=== PATIENT | female | born 1950 | race Caucasian/White ===

== ENCOUNTER → 2021-07-26 | Outpatient (CLI) | payer OTHER ==
[~2021-07-26] MED LIST: Antivert25 MG PO; DIPH50 PO; Percocet 7.5-31 EACH PO; SUMA25 PO
[2021-07-26 17:03] LABS: Alanine Aminotransfer (ALT/SGP 31 U/L (12-78); Alk Phos 92 U/L (50-136); Anion Gap 7 mmol/L (6-16); Aspartate Aminotrans (AST/SGOT 26 U/L (12-37); Bilirubin, Total 0.5 mg/dL (0.1-1.0); Blood Urea Nitrogen 13 mg/dL (8-24); Bun/Creatinine Ratio 20.9 (12.0-20.0); CO2, Blood 28 mmol/L (21-32); Calcium, Blood 10.4 mg/dL (8.5-10.1); Chloride, Blood 104 mmol/L (98-108); Creatinine, Blood 0.62 mg/dL (0.40-1.00); Globulin, Blood 3.9 g/dL (2.2-4.0); Glomerular Filtration Rate >60 (60-); Glucose, Blood 93 mg/dL (70-99); Potassium, Blood 3.2 mmol/L (3.5-5.5); Sodium, Blood 139 mmol/L (136-145); Total Protein, Blood 7.9 g/dL (6.4-8.2)
[2021-07-26 19:09] LABS: CHOL/HDL RATIO 3.9; Cholesterol 262 mg/dL (50-200); HDL Cholesterol 68 mg/dL (>39); LDL/HDL RATIO 2.5; Low Density Lipoprotein Chol 170 mg/dL (0-110); Triglycerides 118 mg/dL (30-160); Very Low Density Lipoprot Chol 23 mg/dL (6-32)
== END | disposition home or self-care (01) ==
LOC: LAB SHORT 10:37
PROVIDERS: Nurse Practitioner Family
DX: E78.5 Hyperlipidemia, unspecified (principal); K59.00 Constipation, unspecified; R10.13 Epigastric pain; R11.10 Vomiting, unspecified
CPT/HCPCS: 80053; 80061; 87086

== ENCOUNTER 2023-12-26 15:32 | Emergency (ER) | payer OTHER ==
[~2023-12-26] VITALS: Ht 167.6 cm; Wt 90.7 kg
[2023-12-26 17:37] VITALS: BP 165/123
== END 2023-12-26 17:53 | disposition home or self-care (01) ==
LOC: ER 15:32
DX: S05.12XA Contusion of eyeball and orbital tissues, left eye, initial encounter (principal); S09.8XXA Other specified injuries of head, initial encounter; L03.211 Cellulitis of face; W10.8XXA Fall (on) (from) other stairs and steps, initial encounter; Y92.511 Restaurant or cafe as the place of occurrence of the external cause

== ENCOUNTER 2025-02-13 06:29 | Day surgery (SDC) | payer OTHER ==
[~2025-02-13] VITALS: Ht 165.1 cm; Wt 89.8 kg
[~2025-02-13 06:29] MED LIST changes: +AMOCLA875 PO; +Balanced Salt Epinephrine Irrigation Solution 500 mL IR SCH; +Diazepam 5 MG Tab PO PRN; +Diazepam 5 MG Tab PO SCH; +HYDR1TAB94 PO; +Lidocaine HCl/Pf 1% 5 ML VIAL XX SCH; +Moxifloxacin HCL 0.5 MG/0.1 ML 0.4MLSYR RIGHTEYE SCH; +Ondansetron 4 MG SoluTab MM PRN; +PHENYLEPHRINE\\TROPICAMIDE\\TETRACAINE OPHTHALMIC DILATING SOLN RIGHTEYE PRN; +Povidone-Iodine 450 DROP/30 ML Solution ONE; +Povidone-Iodine 450 DROP/30 ML Solution RIGHTEYE SCH; +Tetracaine HCl/Pf 0.5% Opth Soln 4 ml ONE
[2025-02-13] MEDS ORDERED: Diazepam 10 MG Tab ONE (06:35)
[2025-02-13] MEDS ORDERED: Lidocaine HCl/Pf 1% 5 ML VIAL ONE (06:49)
[2025-02-13] MEDS ORDERED: Triamcinolone Inj Susp 40 MG / ML 1ML Vial ONE (06:49)
--- NOTE | 2025-02-13 06:50 | NUR ---
02/13/25 0650 Dora Frazier PT STATES ANXIETY LEVEL IN PREOP IS 7/10 BEFORE VALIUM PO 10MG. PT IS ON CONTINUOUS PULSE OX MONITORING. CALL LIGHT IN HAND
--- NOTE | 2025-02-13 08:12 | NUR ---
02/13/25 0812 Angelika Villagomez BP-152/83 P-62 SPO2-100% 10L BLOW BY O2
[2025-02-13 08:20] VITALS: BP 153/80
--- NOTE | 2025-02-13 08:40 | NUR ---
02/13/25 1853 iMmi Wong SPOUSE CALLED TO PULL CAR AROUND
== END 2025-02-13 08:40 | disposition home or self-care (01) ==
LOC: ORSCSDS 06:29
PROVIDERS: Ophthalmology
PROC: 08RJ3JZ Replacement of Right Lens with Synthetic Substitute, Percutaneous Approach (ICD-10-PCS; principal; 2025-02-13 08:00)
DX: H25.813 Combined forms of age-related cataract, bilateral (principal); I10 Essential (primary) hypertension
CPT/HCPCS: A9270; J2003; J3301; V2632

== ENCOUNTER 2025-02-20 06:29 | Day surgery (SDC) | payer OTHER ==
[~2025-02-20] VITALS: Ht 165.1 cm; Wt 89.3 kg
[~2025-02-20 06:29] MED LIST changes: -Diazepam 5 MG Tab PO PRN; -Diazepam 5 MG Tab PO SCH; -Lidocaine HCl/Pf 1% 5 ML VIAL XX SCH; +Moxifloxacin HCL 0.5 MG/0.1 ML 0.4MLSYR LEFTEYE SCH; -Moxifloxacin HCL 0.5 MG/0.1 ML 0.4MLSYR RIGHTEYE SCH; +PHENYLEPHRINE\\TROPICAMIDE\\TETRACAINE OPHTHALMIC DILATING SOLN LEFTEYE PRN; -PHENYLEPHRINE\\TROPICAMIDE\\TETRACAINE OPHTHALMIC DILATING SOLN RIGHTEYE PRN; +Povidone-Iodine 450 DROP/30 ML Solution LEFTEYE SCH; -Povidone-Iodine 450 DROP/30 ML Solution RIGHTEYE SCH; +Triamcinolone Inj Susp 40 MG / ML 1ML Vial INJ SCH
[2025-02-20] MEDS ORDERED: Triamcinolone Inj Susp 40 MG / ML 1ML Vial ONE (06:46)
--- NOTE | 2025-02-20 08:08 | NUR ---
02/20/25 0808 Patti Stringer VITALS AT 0808 BP: 133/117 P: 66 O2: 100% WITH 6 LITERS OF BLOW BY OXYGEN
--- NOTE | 2025-02-20 08:25 | NUR ---
02/20/[address] AT BEDSIDE
[2025-02-20 08:29] VITALS: BP 161/77
== END 2025-02-20 08:42 | disposition home or self-care (01) ==
LOC: ORSCSDS 06:29
PROVIDERS: Ophthalmology
PROC: 08RK3JZ Replacement of Left Lens with Synthetic Substitute, Percutaneous Approach (ICD-10-PCS; principal; 2025-02-20 08:00)
DX: H25.812 Combined forms of age-related cataract, left eye (principal); Z96.1 Presence of intraocular lens; H04.123 Dry eye syndrome of bilateral lacrimal glands; H18.513 Endothelial corneal dystrophy, bilateral; I10 Essential (primary) hypertension
CPT/HCPCS: A9270; J2003; J3301; V2632